=== PATIENT | female | born 1960 | race Hispanic/Latino ===

== ENCOUNTER 2018-02-16 10:30 | Emergency (ER) | payer BC ==
[2018-02-16 10:30] VITALS: BMI 28.3
--- NOTE | 2018-02-16 11:03 | ED PDOC ---
Arrival/HPI <Giacomo Nelson DO - Last Filed: 02/16/18 11:44> - General Historian: Patient - History of Present Illness Narrative History of Present Illness (Text): 02/16/18 13:07 57 y/o female with no significant PMH who presents to the ED c/o vomiting and diarrhea x 6 hours. Pt ate at a new restaurant last night and woke up at 5am this morning with diarrhea and vomiting. Pt admits to >10 episodes of both diarrhea and vomiting since this morning. No one else ate the meals she ate. Denies sick contacts, recent travel, or recent antibiotic use. Currently c/o nausea and mild frontal headache. Denies fevers, chills, abdominal pain, SOB, chest pain, rash, vision changes, diaphoresis, palpitations, syncope, urinary symptoms. <Lisa Brown - Last Filed: 02/16/18 13:13> - General Chief Complaint: GI Problem Time Seen by Provider: 02/16/18 10:36 Past Medical History - Provider Review Nursing Documentation Reviewed: Yes - Past Medical History Past Medical History: No Previous - Cardiac Hx Cardiac Disorders: No - Pulmonary Hx Respiratory Disorders: No - Neurological Hx Neurological Disorder: Yes Hx Headaches: Yes - HEENT Hx HEENT Disorder: No - Renal Hx Renal Disorder: No - Endocrine/Metabolic Hx Endocrine Disorders: No - Hematological/Oncological Hx Blood Disorders: No - Integumentary Hx Dermatological Disorder: No - Musculoskeletal/Rheumatological Hx Musculoskeletal Disorders: No - Gastrointestinal Hx Gastrointestinal Disorders: No - Genitourinary/Gynecological Hx Genitourinary Disorders: No - Psychiatric Hx Psychophysiologic Disorder: No Hx Substance Use: No - Past Surgical History Past Surgical History: No Previous - Suicidal Assessment Feels Threatened In Home Enviroment: No <Lisa Brown - Last Filed: 02/16/18 13:13> Family/Social History - Physician Review Nursing Documentation Reviewed: Yes Family/Social History: No Known Family HX Smoking Status: Never Smoked Hx Alcohol Use: Yes Frequency of alcohol use: Socially Hx Substance Use: No <Lisa Brown - Last Filed: 02/16/18 13:13> Allergies/Home Meds <Giacomo Nelson DO - Last Filed: 02/16/18 11:44> <Lisa Brown - Last Filed: 02/16/18 13:13> Allergies/Adverse Reactions: Allergies FISH Allergy (Verified 02/16/18 10:43) RASH Review of Systems - Physician Review All systems were reviewed & negative as marked: Yes - Review of Systems Constitutional: Fatigue. absent: Fevers Eyes: Normal. absent: Vision Changes ENT: Normal Respiratory: Normal. absent: SOB, Cough Cardiovascular: Normal. absent: Chest Pain, Palpitations, Syncope Gastrointestinal: Diarrhea, Nausea, Vomiting, Appetite Changes. absent: Abdominal Pain, Constipation, Hematochezia, Hematemesis Genitourinary Female: Normal. absent: Dysuria, Frequency, Hematuria, Urine Output Changes Musculoskeletal: Normal. absent: Arthralgias, Back Pain, Neck Pain, Myalgias Skin: Normal. absent: Rash Neurological: Headache. absent: Dizziness, Focal Weakness, Gait Changes, Speech Changes, Facial Droop, Disequilibrium Hemo/Lymphatic: Normal. absent: Adenopathy <Lisa Brown - Last Filed: 02/16/18 13:13> Physical Exam Vital Signs Temp Pulse Resp BP Pulse Ox 02/16/18 10:44 98.1 F 86 19 173/87 H 98 <Giacomo Nelson DO - Last Filed: 02/16/18 11:44> Vital Signs Reviewed: Yes Vital Signs Temp Pulse Resp BP Pulse Ox 02/16/18 10:44 98.1 F 86 19 173/87 H 98 Temperature: Afebrile Blood Pressure: Normal Pulse: Regular Respiratory Rate: Normal Appearance: Positive for: Well-Appearing, Non-Toxic, Uncomfortable Pain Distress: None Mental Status: Positive for: Alert and Oriented X 3 - Systems Exam Head: Present: Atraumatic, Normocephalic Pupils: Present: PERRL Extroacular Muscles: Present: EOMI Conjunctiva: Present: Normal Ears: Present: Normal Mouth: Present: Dry Pharnyx: Present: ERYTHEMA. No: EXUDATE, TONSILS ENLARGED, Peritonsilar Swelling Nose (External): Present: Atraumatic Neck: Present: Normal Range of Motion. No: MIDLINE TENDERNESS, Paraspinal Tenderness Respiratory/Chest: Present: Clear to Auscultation, Good Air Exchange. No: Re spiratory Distress, Accessory Muscle Use Cardiovascular: Present: Regular Rate and Rhythm, Normal S1, S2. No: Murmurs Abdomen: Present: Normal Bowel Sounds. No: Tenderness, Distention, Peritoneal Signs Back: Present: Normal Inspection. No: Midline Tenderness, Paraspinal Tenderness Upper Extremity: Present: Normal Inspection, Normal ROM, NORMAL PULSES Lower Extremity: Present: Normal Inspection, NORMAL PULSES, Normal ROM Neurological: Present: GCS=15, CN II-XII Intact, Speech Normal Skin: Present: Dry, Normal Color, Pale. No: Rashes Lymphatic: No: Cervical Adenopathy Psychiatric: Present: Alert, Oriented x 3, Normal Insight, Normal Concentration <Lisa Brown - Last Filed: 02/16/18 13:13> Medical Decision Making ED Course and Treatment: 02/16/18 11:44 Patient Seen with Resident: In agreement with resident note which contains more details about the patient. Patient seen and evaluated with resident. Came up with plan and treatment together. - Lab Interpretations Lab Results: 02/16/18 11:10 02/16/18 11:10 Lab Results 02/16/18 11:10: Sodium 139, Potassium 3.9, Chloride 104, Carbon Dioxide 26, Anion Gap 12, BUN 20, Creatinine 0.5 L, Est GFR ( Amer) > 60, Est GFR (Non-Af Amer) > 60, Random Glucose 140 H, Calcium 8.9, Total Bilirubin 0.5, AST 22, ALT 26, Alkaline Phosphatase 91, Total Protein 8.0, Albumin 4.4, Globulin 3.6, Albumin/Globulin Ratio 1.2 02/16/18 11:10: WBC 9.5, RBC 4.16, Hgb 13.2, Hct 38.7, MCV 93.0, MCH 31.7, MCHC 34.1, RDW 13.0, Plt Count 293, MPV 9.6, Gran % 81.6 H, Lymph % (Auto) 16.2 L, Garvin % (Auto) 2.0, Eos % (Auto) 0.1 L, Baso % (Auto) 0.1, Gran # 7.73 H, Lymph # (Auto) 1.5, Garvin # (Auto) 0.2, Eos # (Auto) 0.0, Baso # (Auto) 0.01 - Medication Orders Current Medication Orders: Sodium Chloride (Sodium Chloride 0.9%) 1,000 mls @ 999 mls/hr IV .Q1H1M STA Stop: 02/16/18 12:05 Last Admin: 02/16/18 11:09 Dose: 999 mls/hr eMAR Start Stop Document 02/16/18 11:09 LA (Rec: 02/16/18 11:10 LA [id number]) Intravenous Solution Start Date 02/16/18 Start Time 11:09 End Date 02/16/18 End time 12:10 Total Infusion Time 61 Discontinued Medications Ondansetron HCl (Zofran Inj) 8 mg IVP STAT STA Stop: 02/16/18 11:05 Last Admin: 02/16/18 11:16 Dose: 8 mg IVP Administration Document 02/16/18 11:16 LA (Rec: 02/16/18 11:16 LA [id number]) Charges for Administration # of IVP Administrations 1 <Giacomo Nelson DO - Last Filed: 02/16/18 11:44> ED Course and Treatment: 02/16/18 10:59 57 y/o female with no significant PMH who presents to the ED c/o vomiting and diarrhea x 6 hours. Pt ate at a new restaurant last night and woke up at 5am th is morning with diarrhea and vomiting. Pt admits to >10 episodes of both diarrhea and vomiting since this morning. No one else ate the meals she ate. Denies sick contacts, recent travel, or recent antibiotic use. Currently c/o nausea and mild frontal headache. Denies fevers, chills, abdominal pain, SOB, chest pain, rash, vision changes, diaphoresis, palpitations, syncope, urinary symptoms. Physical Exam: Normal cardiac, pulmonary, abdominal, neuro exam Will get basic labs Will give fluids - 1L bolus Will give zofran 8mg IV Will give toradol 15mg IV CBC: wnl CMP: wnl Educated pt on importance of staying hydrated Impression: Food Poisoning Plan: Take Zofran 4mg 1 tablet every 8 hours as needed for nausea Take ibuprofen or tylenol as needed for headache Increase fluids as tolerated Followup with primary doctor within 2 days Return to ED if symptoms persist or worsen Plan discussed with pt and family who agree and understand. Pt comfortable with discharge home. - Lab Interpretations I have reviewed the lab results: Yes Interpretation: No clinic. lab abnormalty <Lisa Brown - Last Filed: 02/16/18 13:13> Disposition/Present on Arrival <Giacomo Nelson DO - Last Filed: 02/16/18 11:44> - Present on Arrival Any Indicators Present on Arrival: No History of DVT/PE: No History of Uncontrolled Diabetes: No Urinary Catheter: No History of Decub. Ulcer: No History Surgical Site Infection Following: None - Disposition Have Diagnosis and Disposition been Completed?: Yes Disposition Time: 12:00 Patient Plan: Discharge <MercedesradhaLisa - Last Filed: 02/16/18 13:13> - Disposition Diagnosis: Food poisoning Disposition: HOME/ ROUTINE Patient Problems: Current Active Problems Problem Status Onset Food poisoning Acute Condition: IMPROVED Discharge Instructions (ExitCare): Food Poisoning Additional Instructions: Take Zofran 4mg 1 tablet every 8 hours as needed for nausea Take ibuprofen or tylenol as needed for headache Increase fluids as tolerated Followup with primary doctor within 2 days Return to ED if symptoms persist or worsen Prescriptions: Ondansetron HCl [Zofran] 4 mg PO Q8H PRN #6 tablet PRN Reason: Nausea/Vomiting Referrals: Amirta Berry MD [Medical Doctor] - Follow up with primary Forms: [employer] (Malay), WORK NOTE
[2018-02-16] MEDS ORDERED: Sodium Chloride 0.9% 1,000 ML IV STA ×2 (11:05→12:09)
[2018-02-16 11:33] LABS: ALB/GLOB RATIO 1.2 (1.1-1.8); ALBUMIN 4.4 g/dL (3.0-4.8); ALT/SGPT 26 U/L (7-56); AST/SGOT 22 U/L (14-36); BLOOD UREA NITROGEN 20 mg/dL (7-21); CALCIUM 8.9 mg/dL (8.4-10.5); GFR NON-AFRICAN AMERICAN > 60
[2018-02-16 11:36] LABS: BASO # 0.01 K/mm3 (0.0-2.0); BASO % 0.1 % (0.0-3.0); EOS % 0.1 % (1.5-5.0); GRAN # 7.73 (1.4-6.5); GRAN % 81.6 % (50.0-68.0); HEMOGLOBIN 13.2 g/dL (12.0-16.0); LYMPH # 1.5 (1.2-3.4); LYMPH % 16.2 % (22.0-35.0); MEAN CORPUSCULAR HEMOGLOBIN 31.7 pg (25.0-35.0); MEAN CORPUSCULAR HGB CONC 34.1 g/dl (31.0-37.0); MEAN PLATELET VOLUME 9.6 fl (7.0-11.0); MONO # 0.2 (0.1-0.6); RBC 4.16 10^6/uL (3.5-6.1); WHITE BLOOD COUNT 9.5 10^3/ul (4.5-11.0)
[2018-02-16 13:05] VITALS: BP 140/57; PULSE 78; RESP 16; TEMP 98.2; O2SAT 99
== END 2018-02-16 13:06 | disposition home or self-care (01) ==
LOC: ED 10:30
DX: T62.91XA Toxic effect of unspecified noxious substance eaten as food, accidental (unintentional), initial encounter (principal); Y92.511 Restaurant or cafe as the place of occurrence of the external cause
CPT/HCPCS: 80053; 85025; 96361; 96374; 96375; 99284; J1885; J2405; J7030